=== PATIENT | female | born 1955 | race Caucasian/White ===

== ENCOUNTER 2021-09-20 15:18 | Emergency (ER) | payer OTHER, MEDICARE ==
[~2021-09-20] VITALS: Ht 175.3 cm; Wt 72.6 kg
[2021-09-20 15:18] VITALS: BP_SYST 200
[2021-09-20] MEDS ORDERED: ED NON STOCK ORDER 1 EA MISC IVP ONE (16:15)
[2021-09-20] MEDS ORDERED: MIDAZOLAM HCL 5 MG/5 ML VIAL IVP ONE (16:15)
[2021-09-20] MEDS ORDERED: KETAMINE HCL 500 MG/10 ML VIAL ONE (16:30)
[2021-09-20] MEDS ORDERED: IBUP-1971 PO (17:10)
[2021-09-20] MEDS ORDERED: HYDR-3917 PO (17:10)
[2021-09-20 17:40] VITALS: BP_SYST 170
[2021-09-20] MEDS ORDERED: HYDROcodone/ACETAMIN 10-325 MG TAB PO ONE (17:45)
[2021-09-20] MEDS ORDERED: IBUPROFEN 800 MG TABLET PO ONE (17:45)
== END 2021-09-20 17:38 | disposition home or self-care (01) ==
LOC: SED 15:18
DX: S52.532A Colles' fracture of left radius, initial encounter for closed fracture (principal); Z88.0 Allergy status to penicillin; Z79.899 Other long term (current) drug therapy; W18.39XA Other fall on same level, initial encounter; Y93.89 Activity, other specified; Y92.89 Other specified places as the place of occurrence of the external cause; Y99.8 Other external cause status
CPT/HCPCS: 25605; 73100; 73110; 99285; J2250